=== PATIENT | male | born 1955 | race Two or more races ===

== ENCOUNTER 2017-02-25 14:33 | Inpatient (IN) | payer MEDICAID ==
[~2017-02-25] VITALS: Ht 170.2 cm; Wt 80.7 kg
--- NOTE | 2017-02-25 14:43 | Emergency Room Report ---
History of Present Illness General Chief Complaint: Chest Pain Source: Patient, EMS Present Illness HPI Patient presents with left-sided chest pain. He states it is 8/10. He was grabbing his chest. He was in a deposition for Worker's Comp. case regarding a fall where he sustained trauma to his left chest. He states he had vascular injuries along with injury to his brachial plexus leading to weakness in his left arm. Paramedics gave the patient aspirin 162 and 3 sprays of nitroglycerin. The pain decreased to 4/10. The patient has chronic hoarseness. This has no change. This is also related to the trauma. He denies fevers, cough, shortness of breath. He does have upper back pain. 8/10, constant and worse when he moves. This is also related to the trauma. H/O diabetes. No HTN, smoking or family history. No NVD, rashes, headache. There is some depression over his disability. Allergies: Coded Allergies: No Known Allergies (Unverified , 02/25/17) Patient History Past Medical History: see triage record Past Surgical History: other - chest trauma Social History: Denies: smoking Social History Narrative disabled Reviewed Nursing Documentation: PMH: Agreed, PSxH: Agreed Nursing Documentation-PMH Past Medical History: No Stated History Review of Systems All Other Systems: negative except mentioned in HPI Physical Exam Vital Signs Date Time Temp Pulse Resp B/P Pulse Ox O2 Delivery O2 Flow Rate FiO2 02/25/17 14:28 104 16 143/93 99 Room Air Sp02 EP Interpretation: reviewed, normal General Appearance: well appearing, no apparent distress, GCS 15 Head: normocephalic Eyes: bilateral eye PERRL, bilateral eye normal inspection ENT: moist mucus membranes, other - hoarse Neck: supple Respiratory: lungs clear, normal breath sounds Cardiovascular #1: regular rate, rhythm Cardiovascular #2: 2+ radial (R) Gastrointestinal: normal inspection, normal bowel sounds, non tender, no mass, non-distended Musculoskeletal: back normal - with upper back tenderness to palpation, gait/ station normal, normal range of motion Neurologic: alert, oriented x3, sensory intact, speech normal - with hoarseness , motor weakness - L arm Psychiatric: depressed affect Skin: normal inspection, warm/dry Medical Decision Making Diagnostic Impression: Primary Impression: Chest pain Qualified Codes: R07.9 - Chest pain, unspecified Additional Impression: Traumatic injury of chest Qualified Codes: S29.9XXD - Unspecified injury of thorax, subsequent encounter ER Course Patient presents with chest pain. He has few risk factors. However cardiac evaluation is undertaken. Differential includes acute myocardial infarction, pulmonary embolus, posttraumatic pain, stress, GERD amongst others. EKG, labs including d-dimer and chest x-ray are ordered. He is somewhat improved with nitrates suggesting either GERD or cardiac etiology. He's offered morphine here and declines. In addition he received aspirin in the field and will be treating him with nitroglycerin paste. EKG normal. CXR with L effusion vs chronic changes, ectatic aorta. Initial troponin negative. Patient still with pain. Refused morphine. Tramadol given. BP holding with nitrates. Evaluated by Dr. Atkinson in ED. Admit telemetry Dr. Flores. Laboratory Tests Test 02/25/17 15:05 White Blood Count 7.6 K/UL (4.8-10.8) Red Blood Count 4.89 M/UL (4.70-6.10) Hemoglobin 15.3 G/DL (14.2-18.0) Hematocrit 43.8 % (42.0-52.0) Mean Corpuscular Volume 90 FL (80-99) Mean Corpuscular Hemoglobin 31.2 PG (27.0-31.0) H Mean Corpuscular Hemoglobin Concent 34.8 G/DL (32.0-36.0) Red Cell Distribution Width 11.3 % (11.6-14.8) L Platelet Count 227 K/UL (150-450) Mean Platelet Volume 7.5 FL (6.5-10.1) Neutrophils (%) (Auto) 79.7 % (45.0-75.0) H Lymphocytes (%) (Auto) 12.4 % (20.0-45.0) L Monocytes (%) (Auto) 6.7 % (1.0-10.0) Eosinophils (%) (Auto) 0.2 % (0.0-3.0) Basophils (%) (Auto) 1.0 % (0.0-2.0) Prothrombin Time 10.0 SEC (9.30-11.50) Prothrombin Time INR 1.0 (0.9-1.1) PTT 25 SEC (23-33) D-Dimer < 100 ng/mL (<500) Sodium Level 138 mEQ/L (135-145) Potassium Level 4.1 mEQ/L (3.4-4.9) Chloride Level 100 mEQ/L (98-107) Carbon Dioxide Level 23 mEQ/L (20-30) Anion Gap 15 (5-15) Blood Urea Nitrogen 15 mg/dL (7-23) Creatinine 0.9 mg/dL (0.7-1.2) Estimate Glomerular Filtration Rate > 60 mL/min (>60) Glucose Level 153 mg/dL (74-106) H Calcium Level 9.7 mg/dL (8.6-10.2) Total Bilirubin 1.2 mg/dL (0.0-1.2) Direct Bilirubin 0.2 mg/dL (0.1-0.3) Aspartate Amino Transferase (AST) 30 U/L (5-40) Alanine Aminotransferase (ALT) 39 U/L (3-41) Alkaline Phosphatase 70 U/L (40-129) Total Creatine Kinase 94 U/L (38-174) Troponin I < 0.30 ng/mL (<=0.30) Pro-B-Type Natriuretic Peptide 28 pg/mL (0-125) Total Protein 6.8 g/dL (6.6-8.7) Albumin 4.4 g/dL (3.5-5.2) Globulin 2.4 g/dL Albumin/Globulin Ratio 1.8 (1.0-2.7) EKG Diagnostic Results Rate: normal Rhythm: NSR ST Segments: no acute changes ASA given to the pt in ED: No - given in field Rhythm Strip Diag. Results EP Interpretation: yes Rhythm: NSR, no PVC's, no ectopy Chest X-Ray Diagnostic Results Chest X-Ray Ordered: Yes # of Views/Limited/Complete: 1 View Interpretation: no consolidation, no pneumothorax, other - ectatic aorta and effusion L Indication: Chest Pain Impression: Other Date Electronically Signed: Feb 25, 2017 Time Electronically Signed: 16:18 Last Vital Signs Date Time Temp Pulse Resp B/P Pulse Ox O2 Delivery O2 Flow Rate FiO2 02/26/17 00:00 97.0 56 20 112/66 96 Room Air Status: improved Disposition: ADMITTED INPATIENT Condition: Serious Joseph Taylor M.D. Feb 25, 2017 14:43
[2017-02-25] MEDS ORDERED: Nitroglycerin 2% oint pkt TOPIC ONE (14:45)
[2017-02-25 15:23] LABS: EOSINOPHILS % (AUTO) 0.2 % (0.0-3.0); LYMPHOCYTES % (AUTO) 12.4 % (20.0-45.0); MEAN CORPUSCULAR HEMOGLOBIN 31.2 PG (27.0-31.0); MEAN CORPUSCULAR HGB CONC 34.8 G/DL (32.0-36.0); MEAN CORPUSCULAR VOLUME 90 FL (80-99); MEAN PLATELET VOLUME 7.5 FL (6.5-10.1); MONOCYTES % (AUTO) 6.7 % (1.0-10.0); NEUTROPHILS % (AUTO) 79.7 % (45.0-75.0); PLATELET COUNT 227 K/UL (150-450); RED BLOOD COUNT 4.89 M/UL (4.70-6.10); RED CELL DISTRIBUTION WIDTH 11.3 % (11.6-14.8); WHITE BLOOD COUNT 7.6 K/UL (4.8-10.8)
[2017-02-25 15:34] VITALS: BP 132/74
[2017-02-25 15:42] LABS: ALANINE AMINOTRANSFERASE 39 U/L (3-41); ALBUMIN/GLOBULIN RATIO 1.8 (1.0-2.7); ANION GAP 15 (5-15); ASPARTATE AMINO TRANSFERASE 30 U/L (5-40); CALCIUM 9.7 mg/dL (8.6-10.2); CARBON DIOXIDE 23 mEQ/L (20-30); CHLORIDE 100 mEQ/L (98-107); CREATININE 0.9 mg/dL (0.7-1.2); GLOMERULAR FILTRATION RATE > 60 mL/min (>60); HEMOLYSIS 25; POTASSIUM 4.1 mEQ/L (3.4-4.9); SODIUM 138 mEQ/L (135-145); TOTAL PROTEIN 6.8 g/dL (6.6-8.7); TROPONIN I < 0.30 ng/mL (<=0.30)
[2017-02-25 16:36] LABS: BILIRUBIN,DIRECT 0.2 mg/dL (0.1-0.3)
[2017-02-25 18:32] VITALS: BP 138/78
--- NOTE | 2017-02-25 20:15 | Cardiology Progress Note ---
Assessment/Plan Assessment/Plan The patient is seen and examined, full consult note will be dictated. Objective Last 24 Hour Vital Signs Date Time Temp Pulse Resp B/P Pulse Ox O2 Delivery O2 Flow Rate FiO2 02/25/17 18:32 87.2 88 13 138/78 100 Room Air 02/25/17 15:34 87.2 83 13 132/74 97 Room Air 02/25/17 15:08 134/73 02/25/17 14:44 104 16 Room Air 02/25/17 14:28 104 16 143/93 99 Room Air Laboratory Tests Test 02/25/17 15:05 White Blood Count 7.6 K/UL (4.8-10.8) Red Blood Count 4.89 M/UL (4.70-6.10) Hemoglobin 15.3 G/DL (14.2-18.0) Hematocrit 43.8 % (42.0-52.0) Mean Corpuscular Volume 90 FL (80-99) Mean Corpuscular Hemoglobin 31.2 PG (27.0-31.0) H Mean Corpuscular Hemoglobin Concent 34.8 G/DL (32.0-36.0) Red Cell Distribution Width 11.3 % (11.6-14.8) L Platelet Count 227 K/UL (150-450) Mean Platelet Volume 7.5 FL (6.5-10.1) Neutrophils (%) (Auto) 79.7 % (45.0-75.0) H Lymphocytes (%) (Auto) 12.4 % (20.0-45.0) L Monocytes (%) (Auto) 6.7 % (1.0-10.0) Eosinophils (%) (Auto) 0.2 % (0.0-3.0) Basophils (%) (Auto) 1.0 % (0.0-2.0) Prothrombin Time 10.0 SEC (9.30-11.50) Prothromb Time International Ratio 1.0 (0.9-1.1) Activated Partial Thromboplast Time 25 SEC (23-33) D-Dimer < 100 ng/mL (<500) Sodium Level 138 mEQ/L (135-145) Potassium Level 4.1 mEQ/L (3.4-4.9) Chloride Level 100 mEQ/L (98-107) Carbon Dioxide Level 23 mEQ/L (20-30) Anion Gap 15 (5-15) Blood Urea Nitrogen 15 mg/dL (7-23) Creatinine 0.9 mg/dL (0.7-1.2) Estimat Glomerular Filtration Rate > 60 mL/min (>60) Glucose Level 153 mg/dL (74-106) H Calcium Level 9.7 mg/dL (8.6-10.2) Total Bilirubin 1.2 mg/dL (0.0-1.2) Direct Bilirubin 0.2 mg/dL (0.1-0.3) Aspartate Amino Transf (AST/SGOT) 30 U/L (5-40) Alanine Aminotransferase (ALT/SGPT) 39 U/L (3-41) Alkaline Phosphatase 70 U/L (40-129) Total Creatine Kinase 94 U/L (38-174) Troponin I < 0.30 ng/mL (<=0.30) Pro-B-Type Natriuretic Peptide 28 pg/mL (0-125) Total Protein 6.8 g/dL (6.6-8.7) Albumin 4.4 g/dL (3.5-5.2) Globulin 2.4 g/dL Albumin/Globulin Ratio 1.8 (1.0-2.7) PETE ANTHONY Feb 25, 2017 20:15
[2017-02-25] MEDS ORDERED: Nitroglycerin Subl 0.4mg tab (Bottle Of 25) SL PRN (20:30)
[2017-02-25] MEDS ORDERED: Morphine Sulfate 4mg/ml Inj IVP PRN (20:30)
[2017-02-25] MEDS ORDERED: Morphine Sulfate 2mg/ml Inj IVP PRN (20:30)
[2017-02-25 20:32] VITALS: BP 128/71
[2017-02-25] MEDS ORDERED: Norco 5mg/325mg tab ORAL ONE (20:45)
[2017-02-25 21:44] VITALS: BP 127/81
[2017-02-25 22:00] VITALS: BP 130/81
[2017-02-26] VITALS: BP 112/66
[2017-02-26 04:04] VITALS: BP 115/75
[2017-02-26 08:00] VITALS: BP 129/74
--- NOTE | 2017-02-26 08:39 | History & Physical ---
History and Physical History & Physicial seen and examined. Dictation completed Delfin Flores MD Feb 26, 2017 08:39
--- NOTE | 2017-02-26 08:41 | General Progress Note ---
Assessment/Plan Status: stable Assessment/Plan 1- Chest pain, ACS ? Plan: Pending cardiology eval. Once stable from cardiology view point; May follow as out patient Subjective ROS Limited/Unobtainable: No Constitutional: Reports: no symptoms HEENT: Reports: no symptoms Cardiovascular: Reports: chest pain Allergies: Coded Allergies: No Known Allergies (Unverified , 02/25/17) Objective Last 24 Hour Vital Signs Date Time Temp Pulse Resp B/P Pulse Ox O2 Delivery O2 Flow Rate FiO2 02/26/17 08:00 97.9 72 18 129/74 96 Room Air 02/26/17 04:04 96.4 63 20 115/75 99 Room Air 02/26/17 04:00 68 02/26/17 00:00 97.0 56 20 112/66 96 Room Air 02/26/17 00:00 51 02/26/17 00:00 97.0 56 56 112/66 96 Room Air 02/25/17 22:00 97.7 63 20 130/81 98 Room Air 02/25/17 22:00 64 02/25/17 21:44 87.2 62 14 127/81 100 Room Air 02/25/17 21:44 98.2 64 14 127/81 99 Room Air 02/25/17 20:32 98.2 81 15 128/71 100 Room Air 02/25/17 18:32 87.2 88 13 138/78 100 Room Air 02/25/17 15:34 87.2 83 13 132/74 97 Room Air 02/25/17 15:08 134/73 02/25/17 14:44 104 16 Room Air 02/25/17 14:28 104 16 143/93 99 Room Air Intake and Output 02/25/17 02/26/17 19:00 07:00 Intake Total 500 ml Output Total 400 ml Balance 500 ml -400 ml Intake Other 500 ml Output Urine Total 400 ml Laboratory Tests 02/25/17 15:05: White Blood Count 7.6, Red Blood Count 4.89, Hemoglobin 15.3, Hematocrit 43.8, Mean Corpuscular Volume 90, Mean Corpuscular Hemoglobin 31.2H, Mean Corpuscular Hemoglobin Concent 34.8, Red Cell Distribution Width 11.3L, Platelet Count 227, Mean Platelet Volume 7.5, Neutrophils (%) (Auto) 79.7H, Lymphocytes (%) (Auto) 12.4L, Monocytes (%) (Auto) 6.7, Eosinophils (%) (Auto) 0.2, Basophils (%) (Auto ) 1.0, Prothrombin Time 10.0, Prothromb Time International Ratio 1.0, Activated Partial Thromboplast Time 25, D-Dimer < 100, Sodium Level 138, Potassium Level 4.1, Chloride Level 100, Carbon Dioxide Level 23, Anion Gap 15, Blood Urea Nitrogen 15, Creatinine 0.9, Estimat Glomerular Filtration Rate > 60, Glucose Level 153H, Calcium Level 9.7, Total Bilirubin 1.2, Direct Bilirubin 0.2, Aspartate Amino Transf (AST/SGOT) 30, Alanine Aminotransferase (ALT/SGPT) 39, Alkaline Phosphatase 70, Total Creatine Kinase 94, Troponin I < 0.30, Pro-B- Type Natriuretic Peptide 28, Total Protein 6.8, Albumin 4.4, Globulin 2.4, Albumin/Globulin Ratio 1.8 Height (Feet): 5 Height (Inches): 7.00 Weight (Pounds): 178 General Appearance: no apparent distress EENT: PERRL/EOMI Neck: supple Cardiovascular: normal rate Respiratory/Chest: lungs clear Abdomen: soft Extremities: non-tender Neurologic: patient coordinator front desk II-XII grossly normal Delfin Flores MD Feb 26, 2017 08:41
[2017-02-26 09:15] LABS: TROPONIN I < 0.30 ng/mL (<=0.30)
[2017-02-26] MEDS: Aspirin EC 81mg tab ORAL SCH (09:57)
[2017-02-26] MEDS: Heparin 5000 units/ml inj SUBQ SCH ×2 (09:58→21:13)
[2017-02-26 12:00] VITALS: BP 121/79
[2017-02-26] MEDS ORDERED: [UNRECOGNIZED DRUG - OTHER] (14:10)
[2017-02-26] MEDS ORDERED: [UNRECOGNIZED DRUG - OTHER] (14:10)
[2017-02-26] MEDS ORDERED: [UNRECOGNIZED DRUG - OTHER] (14:10)
[2017-02-26] MEDS ORDERED: [UNRECOGNIZED DRUG - OTHER] (14:10)
--- NOTE | 2017-02-26 14:45 | History and Physical Report ---
DATE OF ADMISSION: 02/25/2017 SOURCE OF INFORMATION: The patient and EMR. HISTORY OF PRESENT ILLNESS: The patient is a pleasant 62-year-old male complaining of the chest pain. Positive for radiation to the left shoulder and the neck area. Denies any loss of consciousness. Denies any dizziness. Denies any palpitation. The patient denies history of smoking or prior heart disease. PAST SURGICAL HISTORY: Testicular surgery. MEDICATIONS: Hospital medications including aspirin, heparin subcutaneous, morphine sulfate, and nitroglycerin p.r.n. ALLERGIES: NKDA. SOCIAL HISTORY: Denies history of illicit drug abuse, smoking or alcohol abuse. The patient is . He has four children. REVIEW OF SYSTEMS: All 12 points of review of systems reviewed. Pertinent positive and negative reviewed as above. PHYSICAL EXAMINATION: VITAL SIGNS: Blood pressure 140/90, temperature 98.2 degrees, pulse rate 100, respiratory rate is 18-20. HEENT: Head and neck, atraumatic and normocephalic. CHEST: Clear to auscultation. HEART: S1 and S2. Regular rate and rhythm. ABDOMEN: Soft. No organomegaly. MUSCULOSKELETAL: No gross focal motor deficit. NEUROLOGY: The patient is awake, alert and oriented x3. LABORATORY DATA: WBC 7.6, hemoglobin 15.3, and platelets 227,000. Sodium 138, potassium 4.1, BUN 15, and creatinine 0.9. Liver function tests are normal. ASSESSMENT: 1. Chest pain possibility of acute coronary syndrome cannot be excluded. 2. Gastrointestinal and deep vein thrombosis prophylaxes. PLAN OF CARE: Continue the cardiac telemetry monitoring. Cardiology, Dr. Atkinson notified and consulted. We will continue with the aspirin, heparin subcutaneous, and nitroglycerin as needed. Once cleared by Cardiology, the patient may follow up as outpatient. Delfin Flores M.D. DR: Oscar JOB#: [id number] CC:
--- NOTE | 2017-02-26 15:04 | Cardiology Report ---
APPROVED REPORT EXAM: Two-dimensional and M-mode echocardiogram with Doppler and color Doppler. INDICATION Chest Pain M-Mode DIMENSIONS IVSd1.0 (0.7-1.1cm)Left Atrium (MM)2.3 (1.6-4.0cm) LVDd3.4 (3.5-5.6cm)Aortic Root2.9 (2.0-3.7cm) PWd0.9 (0.7-1.1cm)Aortic Cusp Exc.1.8 (1.5-2.0cm) LVDs1.6 (2.5-4.0cm) PWs1.1 cm Normal left ventricular chamber size, systolic function and wall motion. Left ventricular ejection fraction estimated to be 55-60 %. Mild left ventricular hypertrophy. No evidence of pericardial fat or effusion. All other cardiac chamber sizes are within normal limits. Focal aortic valve sclerosis with adequate cusp excursion Thickened mitral valve leaflets with normal excursion. Mitral annulus and aortic root calcification. Pulmonic valve not well visualized. Normal tricuspid valve structure. IVC is normal in size with physiologic collapse. A color flow and spectral Doppler study was performed and revealed: No aortic regurgitation. No mitral regurgitation. Left ventricular diastolic dysfunction grade 1. Mild tricuspid regurgitation. Tricuspid systolic velocities suggests peak right ventricular systolic pressure of 24 mmHg
[2017-02-26 16:00] VITALS: BP 121/73
[2017-02-26 20:00] VITALS: BP 132/82
[2017-02-27] VITALS: BP 140/79
[2017-02-27 04:00] VITALS: BP 137/83
[2017-02-27 08:00] VITALS: BP 150/98
[2017-02-27] MEDS: Aspirin EC 81mg tab ORAL SCH (09:35)
[2017-02-27] MEDS: Heparin 5000 units/ml inj SUBQ SCH (09:36)
[2017-02-27 12:00] VITALS: BP 133/81
[2017-02-27 12:06] VITALS: BP 150/98
[2017-02-27] MEDS ORDERED: NORVASC2.5 MG ORAL (12:45)
--- NOTE | 2017-02-27 12:52 | General Progress Note ---
Assessment/Plan Assessment/Plan 1- Chest pain,Atypical 2- HTN Plan: Ok to followup as outpatient Subjective ROS Limited/Unobtainable: No Constitutional: Reports: no symptoms HEENT: Reports: no symptoms Cardiovascular: Reports: no symptoms Allergies: Coded Allergies: No Known Allergies (Unverified , 02/25/17) Objective Last 24 Hour Vital Signs Date Time Temp Pulse Resp B/P Pulse Ox O2 Delivery O2 Flow Rate FiO2 02/27/17 12:06 70 150/98 02/27/17 12:00 97.7 65 18 133/81 98 Room Air 02/27/17 08:00 70 02/27/17 08:00 97.2 76 18 150/98 99 Room Air 02/27/17 04:00 66 02/27/17 04:00 97.3 63 18 137/83 98 Room Air 02/27/17 00:00 97.2 68 16 140/79 97 Room Air 02/27/17 00:00 74 02/26/17 20:00 71 02/26/17 20:00 98.2 71 20 132/82 97 Room Air 02/26/17 16:00 97.7 72 18 121/73 98 Room Air 02/26/17 16:00 68 Intake and Output 02/26/17 02/27/17 19:00 07:00 Intake Total 400 ml Output Total 500 ml Balance -100 ml Other 400 ml Output Urine Total 500 ml # Voids 2 Height (Feet): 5 Height (Inches): 7.00 Weight (Pounds): 178 General Appearance: no apparent distress EENT: PERRL/EOMI Neck: supple Cardiovascular: normal rate Respiratory/Chest: lungs clear Abdomen: soft Extremities: non-tender Neurologic: setter helper II-XII grossly normal Delfin Flores MD Feb 27, 2017 12:52
--- NOTE | 2017-02-27 22:00 | Consultation ---
DATE OF CONSULTATION: 02/25/2017 CARDIOLOGY CONSULTATION CONSULTING PHYSICIAN: ATTENDING PHYSICIAN: REFERRING PHYSICIAN: Delfin Flores M.D. REASON FOR CONSULTATION: Management of chest pain. HISTORY OF PRESENT ILLNESS: The patient is a very unfortunate 62-year-old gentleman, who presents to the emergency department of [facility] with left-sided chest pain. He states that there is squeezing pain in the left precordial area 8/10, responded partially to the nitroglycerin with decreased intensity to 4/10. It appears that the patient had a recent fall and sustained trauma to the left side of the chest. On arrival to the emergency department, initial 12 lead electrocardiogram showed no evidence of ST and T-wave abnormalities suggestive of ischemia. His first troponin level was also within normal limits. The patient is admitted to telemetry for further evaluation and management. PAST MEDICAL HISTORY: Includes status post fall with injury to the left chest wall as well as left brachial plexus leading to weakness of the arm. PAST SURGICAL HISTORY: Testicular surgery. HOME MEDICATIONS: Not quite known, but including tramadol and daunorubicin. SOCIAL HISTORY: Never been a smoker, using alcohol, or illicit drug use. ALLERGIES: No known drug allergies. REVIEW OF SYSTEMS: Twelve system review done essentially negative except what mentioned in the history of present illness. MEDICATIONS: It is not quite known medication the patient uses, but one medication is tramadol the dose of which is unknown. In the hospital, he was started on aspirin, heparin subcutaneously, morphine sulfate, and nitroglycerin 0.4 mg every 5 hours minutes p.r.n. chest pain. PHYSICAL EXAMINATION: VITAL SIGNS: Blood pressure at the time of arrival to the hospital is 143/93, pulse of 104, respirations 16, O2 saturation 99% on room air. GENERAL: The patient is a very pleasant 62-year-old gentleman was seen in the emergency department of [facility] in no apparent respiratory distress. HEENT: Atraumatic and normocephalic. Anicteric. Pupils are equal, round, and reactive to light and accommodation. Extraocular muscles are intact. NECK: JVP less than 5 centimeter. No carotid bruits. Carotid upstrokes 2+ bilaterally. CARDIOVASCULAR: Normal S1, S2. Regular rate and rhythm. No murmurs, gallops, or rubs. PMI is at fourth intercostal space in the midclavicular line. LUNGS: Clear to auscultation bilaterally. ABDOMEN: Soft, nontender, and nondistended. No hepatosplenomegaly. Positive bowel sounds. EXTREMITIES: No evidence of edema, clubbing, or cyanosis. A 12 lead electrocardiogram, sinus tachycardia, rate of [address] and T-wave abnormalities. LABORATORY FINDINGS: Sodium was 138, potassium is 4.1, chloride 100, bicarbonate 23, BUN of 15, creatinine 0.9, glucose is 153, calcium is 9.7. Troponin I was less than 0.3 and proBNP was 28. INR was 1.0. D-dimer was less than 100. WBC 7.6, hemoglobin 15.3, hematocrit 43.8 and platelet count is 227. ASSESSMENT AND PLAN: The patient is a very unfortunate 62-year-old gentleman, seen in Cardiology consultation at the request of Dr. Flores. 1. Most likely noncardiac chest pain. There is no evidence of ischemia on the 12-lead electrocardiogram, the patient does not quite have risk factors for coronary artery disease. The pain is reproducible and most likely following his fall. His troponin level is negative. The patient is admitted to telemetry to rule out acute myocardial infarction. 2. Of note, beta natriuretic peptide was also negative, which is unlikely to occur with true ischemic heart disease. 3. I would continue with primary preventive measures for CAD including a use of aspirin 81 mg daily. 4. DVT prophylaxis . 5. Status post fall with left chest wall injury. I would like to thank, Dr. Flores, for allowing me to participate in the care of this patient. Corwin Atkinson M.D. DR: EMELINA JOB#: [id number] CC:
--- NOTE | 2017-02-28 13:04 | Discharge Summary ---
Discharge Summary Hospital Course Date of Admission Feb 25, 2017 at 16:40 Date of Discharge Feb 27, 2017 at 14:53 Admitting Diagnosis CHEST PAIN HPI Reji Boone is a 62 year old male who was admitted on Feb 25, 2017 at 16:40 for Chest Pain Hospital Course dc summary #[id number] Discharge Medications Continued Medications: Amlodipine Besylate (Norvasc) 2.5 Mg Tablet 2.5 MG ORAL DAILY, TAB Discharge Condition Upon Discharge: stable Discharge Disposition Patient was discharged to Home () Discharge Diagnoses: Discharge Instructions Discharge Instructions Special Instructions I have been assigned to complete a D/C Summary on this account. I was not involved in the patient management Margarita Oswald NP (Vanchtein) Feb 28, 2017 13:04
--- NOTE | 2017-03-01 05:45 | Discharge Summary 2 SIG ---
DATE OF ADMISSION: 02/25/2017 DATE OF DISCHARGE: 02/27/2017 The patient is admitted under Dr. Flores. REASON FOR ADMISSION: This is a 62-year-old male, presented to emergency room complaining of the left-sided chest pain. Pain was quantified as 8/10 on a scale of 1 to 10. The patient had a deposition for workman compensation case regarding the fall he sustained, which resulted in the traumatic injury to his left chest wall. The patient stated that he has vascular injury along with injury to brachial plexus leading to weakness in the left arm. In the field, the patient was given aspirin and two sprays of nitroglycerin. His pain decreased to 4/10. The patient has chronic hoarseness, also related to trauma. He denied fever, cough, congestion, or shortness of breath. The patient's workup in the emergency room revealed stable D-dimer. Negative troponin. ProBNP 28. Blood pressure was slightly elevated 143/93. The patient was given another nitroglycerin with improvement of blood pressure. EKG revealed normal sinus rhythm. No acute ischemic changes. The patient was admitted for further management. ADMITTING DIAGNOSES: Include: 1. Chest pain, rule out acute coronary syndrome. 2. Recent traumatic injury to left chest wall. HOSPITAL COURSE: The patient was admitted to telemetry floor. Cardiology consult requested. Serial troponin x2 negative. EKG revealed no acute ischemic changes. Thus, the patient was ruled out for acute OR. Echocardiogram revealed preserved ejection fraction of 55% to 60% and right ventricular systolic pressure of 24. According to health safety instructor, his chest pain is most likely noncardiac. There are no ischemic changes on EKG. No risk factor for coronary artery disease. Chest pain is reproducible most likely following his fall. ProBNP is negative. He is recommended to continue aspirin and DVT prophylaxis and cleared the patient for discharge. Blood pressure was managed with low dose of calcium channel nena. It was stable. Fall precautions were maintained. The patient was stable for discharge home with family. DISCHARGE DIAGNOSES: Include: 1. Noncardiac chest pain likely secondary to recent traumatic injury to left chest wall. 2. Status post fall with traumatic injury to the left chest wall. 3. Deep venous thrombosis prophylaxis provided. DISCHARGE MEDICATIONS: See medication reconciliation list. DISCHARGE INSTRUCTIONS: The patient to follow up with primary medical doctor next week. Delfin Flores M.D. I have been assigned to dictate discharge summary on this account and I was not involved in the patient's management. Margarita Oswald (vanchtein) NDewayne DR: Russell JOB#: [id number] CC:
--- NOTE | 2017-03-01 18:24 | Cardiology Report ---
APPROVED REPORT EKG Measurement Heart [id number] Normal sinus rhythm Normal ECG
== END 2017-02-27 14:53 | disposition home or self-care (01) | DRG 203 ==
LOC: EDBD 14:33 → EMR 15:40 → 2E 16:40 → EDBEDREQ 17:24
DX: R07.89 Other chest pain (principal); I10 Essential (primary) hypertension; W19.XXXS Unspecified fall, sequela; R53.1 Weakness
CPT/HCPCS: 36415; 71010; 80053; 82248; 82550; 83880; 84484; 85025; 85379; 85610; 85730; 93005; 93306; J2405